=== PATIENT | male | born 1950 | race Two or more races ===

== ENCOUNTER 2021-02-04 01:11 | Emergency (ER) | payer MEDICAID, OTHER ==
[~2021-02-04] VITALS: Ht 167.6 cm; Wt 88.5 kg
[2021-02-04 02:41] LABS: Basophils # (auto) 0.1 10 ^3/uL (0-0.2); Basophils % (auto) 2.3 % (0.0-2.0); Eosinophils # (auto) 0.3 10 ^3/uL (0-0.8); Eosinophils % (auto) 5.1 % (0.0-7.0); Hemoglobin 15.8 g/dL (13.5-17.5); Lymphocytes # (auto) 1.3 10 ^3/uL (0.4-5.4); Lymphocytes % (auto) 22.7 % (10.0-50.0); Mean Corpuscular Hemoglobin 31.8 pg (28.0-32.0); Mean Corpuscular Hgb Conc. 34.3 g/dL (32.0-36.0); Mean Corpuscular Volume 92.9 fL (80.0-100.0); Monocytes # (auto) 0.6 10 ^3/uL (0-1.3); Monocytes % (auto) 10.2 % (0.0-12.0); Neutrophils # (auto) 3.5 10 ^3/uL (1.6-8.6); Neutrophils % (auto) 59.7 % (37.0-80.0); Nucleated Red Blood Cells % 0.1 %; Red Blood Cells 4.96 10^6/uL (4.5-5.90); Red Cell Distribution Width 13.9 % (11.8-14.3); White Blood Cell 5.8 10^3/uL (4.4-10.8)
[2021-02-04 03:02] LABS: Albumin 3.6 g/dL (3.4-5.0); Chloride 106 mmol/L (98-107); Potassium 4.1 mmol/L (3.5-5.1); Sodium 140 mmol/L (136-145)
[2021-02-04 03:07] LABS: Alanine Aminotransferase 40 U/L (16-61); Anion Gap 7 (5-15); Aspartate Aminotransferase 27 U/L (15-37); Blood Urea Nitrogen 8 mg/dL (7-18); Calcium 8.3 mg/dL (8.5-10.1); Carbon Dioxide 27 mmol/L (21-32); GFR African American 109 mL/min; GFR Non-African American 90 mL/min; Glucose 87 mg/dL (74-106)
[2021-02-04 03:12] LABS: Alkaline Phosphatase 67 U/L (45-117); Bilirubin, Total 0.4 mg/dL (0.2-1.0); Total Protein 8.1 g/dL (6.4-8.2)
[2021-02-04 08:00] VITALS: BP 154/72
== END 2021-02-04 08:05 | disposition home or self-care (01) ==
LOC: ER 01:11
DX: J06.9 Acute upper respiratory infection, unspecified (principal); F41.9 Anxiety disorder, unspecified
CPT/HCPCS: 36415; 71045; 80053; 83880; 84484; 85025; 93005

== ENCOUNTER 2022-10-16 11:37 | Inpatient (IN) | payer MEDICAID, OTHER ==
[~2022-10-16] VITALS: Ht 152.4 cm; Wt 71.8 kg
[2022-10-16 12:04] LABS: Basophils # (auto) 0.1 10 ^3/uL (0-0.2); Basophils % (auto) 0.7 % (0.0-2.0); Eosinophils # (auto) 0.1 10 ^3/uL (0-0.8); Eosinophils % (auto) 1.4 % (0.0-7.0); Hematocrit 41.3 % (41.0-53.0); Hemoglobin 13.6 g/dL (13.5-17.5); Lymphocytes # (auto) 1.1 10 ^3/uL (0.4-5.4); Lymphocytes % (auto) 14.3 % (10.0-50.0); Mean Corpuscular Hemoglobin 28.6 pg (28.0-32.0); Mean Corpuscular Volume 86.9 fL (80.0-100.0); Monocytes # (auto) 0.6 10 ^3/uL (0-1.3); Monocytes % (auto) 7.9 % (0.0-12.0); Neutrophils # (auto) 5.7 10 ^3/uL (1.6-8.6); Neutrophils % (auto) 75.7 % (37.0-80.0); Red Blood Cells 4.76 10^6/uL (4.5-5.90); Red Cell Distribution Width 19.2 % (11.8-14.3); White Blood Cell 7.5 10^3/uL (4.4-10.8)
[2022-10-16 12:25] LABS: BUN/Creatinine Ratio 13.6 (10.0-20.0); Calcium 8.7 mg/dL (8.5-10.1); Magnesium 2.3 mg/dL (1.6-2.6); Potassium 4.1 mmol/L (3.5-5.1)
[2022-10-16 12:36] LABS: Bilirubin, Total 0.4 mg/dL (0.2-1.0)
[2022-10-16] MEDS ORDERED: ONDANSETRON HCL 4 MG/2 ML VIAL IV ONE (13:30)
[2022-10-16] MEDS ORDERED: MORPHINE SULFATE INJ 2 MG/ml SYRG IV ONE (13:30)
[2022-10-16] MEDS ORDERED: MORPHINE SULFATE INJ 2 MG/ml SYRG IV PRN (17:45)
[2022-10-16] MEDS ORDERED: AZITHROMYCIN 500MG/ 250ML 250 ML IV ONE (18:15)
[2022-10-16] MEDS ORDERED: hydrALAZINE HCL 20 MG/ML VL IV PRN (18:15)
[2022-10-16 20:43] LABS: INR 1.11 (0.9-1.15); Partial Thromboplastin Time 33.2 SEC (24.5-34.5)
[2022-10-16 23:43] VITALS: BP 108/60
[2022-10-17] VITALS (8 sets, daily range): BP systolic 103–107; BP diastolic 52–56
[2022-10-17] MEDS: SODIUM CHLORIDE 0.9% 1,000 ML IV SCH ×3 (00:18→02:02)
[2022-10-17 06:14] LABS: Basophils # (auto) 0.1 10 ^3/uL (0-0.2); Basophils % (auto) 1.2 % (0.0-2.0); Eosinophils # (auto) 0.4 10 ^3/uL (0-0.8); Eosinophils % (auto) 7.5 % (0.0-7.0); Hematocrit 34.7 % (41.0-53.0); Hemoglobin 11.9 g/dL (13.5-17.5); Lymphocytes # (auto) 1.2 10 ^3/uL (0.4-5.4); Lymphocytes % (auto) 22.1 % (10.0-50.0); Mean Corpuscular Hemoglobin 29.7 pg (28.0-32.0); Mean Corpuscular Hgb Conc. 34.1 g/dL (32.0-36.0); Mean Corpuscular Volume 86.9 fL (80.0-100.0); Monocytes # (auto) 0.6 10 ^3/uL (0-1.3); Monocytes % (auto) 11.1 % (0.0-12.0); Neutrophils # (auto) 3.1 10 ^3/uL (1.6-8.6); Neutrophils % (auto) 58.1 % (37.0-80.0); Nucleated Red Blood Cells % 0.1 %; Red Cell Distribution Width 19.5 % (11.8-14.3); White Blood Cell 5.3 10^3/uL (4.4-10.8)
[2022-10-17 06:30] LABS: Albumin 2.6 g/dL (3.4-5.0); Calcium 8.3 mg/dL (8.5-10.1); Potassium 3.7 mmol/L (3.5-5.1)
[2022-10-17 06:32] LABS: BUN/Creatinine Ratio 15.8 (10.0-20.0); Bilirubin, Total 0.4 mg/dL (0.2-1.0); Total Protein 6.1 g/dL (6.4-8.2)
[2022-10-17] MEDS ORDERED: cefTRIAXone 1GM/50ML D5W 50 ML IV ONE (10:45)
[2022-10-17] MEDS ORDERED: LEVOTHYROXINE SODIUM 50 MCG TAB PO ONE (10:45)
[2022-10-17] MEDS: PANTOPRAZOLE 40 MG/10 ML VIAL INJ IV SCH (11:40)
[2022-10-17] MEDS: HYDROcodone-ACET 5/325MG TAB PO PRN ×2 (11:41→18:18)
[2022-10-17] MEDS: AZITHROMYCIN 500MG/ 250ML 250 ML IV SCH (11:42)
[2022-10-17] MEDS: ALBUTEROL SULF 2.5 MG/0.5ML(0.5%) NEB SOLN NEB SCH (11:48)
[2022-10-17] MEDS: IPRATROPIUM BROM 0.5 MG/2.5ML INH SOL NEB SCH (11:48)
[2022-10-17 18:37] LABS: Urine Bacteria NONE SEEN /hpf (None Seen); Urine Blood Negative /uL (Negative); Urine Mucus FEW (None Seen); Urine Specific Gravity 1.015 (1.001-1.035); Urine WBC 1 /hpf (0 - 3)
[2022-10-18 04:30] VITALS: BP 92/50
[2022-10-18] MEDS: IPRATROPIUM BROM 0.5 MG/2.5ML INH SOL NEB SCH ×3 (06:24→19:40)
[2022-10-18] MEDS: SUCRALFATE 1 GM/10 ML ORAL SUSP GT SCH ×2 (06:24→16:35)
[2022-10-18] MEDS: ALBUTEROL SULF 2.5 MG/0.5ML(0.5%) NEB SOLN NEB SCH ×3 (06:24→19:40)
[2022-10-18] MEDS: LEVOTHYROXINE SODIUM 50 MCG TAB PO SCH (06:25)
[2022-10-18 08:00] VITALS: BP 102/53
[2022-10-18] MEDS: PANTOPRAZOLE 40 MG/10 ML VIAL INJ IV SCH (09:41)
[2022-10-18] MEDS: AZITHROMYCIN 500MG/ 250ML 250 ML IV SCH (09:41)
[2022-10-18] MEDS: cefTRIAXone 1GM/50ML D5W 50 ML IV SCH (09:41)
[2022-10-18] MEDS ORDERED: predniSONE 20 MG TAB PO ONE (10:30)
[2022-10-18 12:00] VITALS: BP 108/54
[2022-10-18 16:00] VITALS: BP 108/51
[2022-10-18 22:00] VITALS: BP 100/54
[2022-10-18] MEDS: HYDROcodone-ACET 5/325MG TAB PO PRN (23:28)
[2022-10-19 05:00] VITALS: BP 91/68
[2022-10-19] MEDS: SUCRALFATE 1 GM/10 ML ORAL SUSP GT SCH ×2 (06:42→15:27)
[2022-10-19] MEDS: LEVOTHYROXINE SODIUM 50 MCG TAB PO SCH (06:42)
[2022-10-19] MEDS: ALBUTEROL SULF 2.5 MG/0.5ML(0.5%) NEB SOLN NEB SCH ×3 (06:53→18:14)
[2022-10-19] MEDS: IPRATROPIUM BROM 0.5 MG/2.5ML INH SOL NEB SCH ×3 (06:53→18:14)
[2022-10-19 09:00] VITALS: BP 114/62
[2022-10-19] MEDS: AZITHROMYCIN 250 MG TAB PO SCH (09:20)
[2022-10-19] MEDS: PANTOPRAZOLE 40 MG TAB PO SCH (09:21)
[2022-10-19] MEDS: predniSONE 20 MG TAB PO SCH (09:21)
[2022-10-19] MEDS: cefTRIAXone 1GM/50ML D5W 50 ML IV SCH (09:22)
[2022-10-19] MEDS: HYDROcodone-ACET 5/325MG TAB PO PRN (09:22)
[2022-10-19 17:00] VITALS: BP 113/47
[2022-10-19 22:00] VITALS: BP 112/60
[2022-10-20 05:00] VITALS: BP 105/61
[2022-10-20] MEDS: LEVOTHYROXINE SODIUM 50 MCG TAB PO SCH (06:33)
[2022-10-20] MEDS: SUCRALFATE 1 GM/10 ML ORAL SUSP GT SCH (06:33)
[2022-10-20] MEDS: ALBUTEROL SULF 2.5 MG/0.5ML(0.5%) NEB SOLN NEB SCH ×2 (06:50→12:25)
[2022-10-20] MEDS: IPRATROPIUM BROM 0.5 MG/2.5ML INH SOL NEB SCH ×2 (06:50→12:25)
[2022-10-20 09:00] VITALS: BP 109/59
[2022-10-20] MEDS: cefTRIAXone 1GM/50ML D5W 50 ML IV SCH (09:06)
[2022-10-20] MEDS: predniSONE 20 MG TAB PO SCH (09:10)
[2022-10-20] MEDS: AZITHROMYCIN 250 MG TAB PO SCH (09:10)
[2022-10-20] MEDS: PANTOPRAZOLE 40 MG TAB PO SCH (09:10)
[2022-10-20 09:33] VITALS: BP 105/61
[2022-10-20] MEDS ORDERED: PRED20TA2 PO (10:45)
[2022-10-20] MEDS ORDERED: AZIT-43 PO ×2 (10:45)
[2022-10-20] MEDS ORDERED: PRED10TA PO (10:45)
[2022-10-20] MEDS ORDERED: PANT40T PO (10:51)
[2022-10-20] MEDS ORDERED: LEVO500T91 PO (10:51)
[2022-10-20] MEDS ORDERED: SUCR1SUS26 GT (10:51)
[2022-10-20] MEDS ORDERED: METR-344 PO (10:51)
[2022-10-20 13:00] VITALS: BP 114/48
[2022-10-20 13:18] VITALS: BP 109/59
== END 2022-10-20 14:15 | disposition home or self-care (01) | DRG 139 ==
LOC: ER 11:37 → EDBD 11:37 → EDUNIT# 17:34 → OVERFLOW 17:34 → CENTRAL 22:10
PROVIDERS: ADMIT Nurse Practitioner Family; ATTEND Internal Medicine
DX: J18.9 Pneumonia, unspecified organism (principal); J96.21 Acute and chronic respiratory failure with hypoxia; K80.00 Calculus of gallbladder with acute cholecystitis without obstruction; I50.42 Chronic combined systolic (congestive) and diastolic (congestive) heart failure; I11.0 Hypertensive heart disease with heart failure; J84.10 Pulmonary fibrosis, unspecified; E78.5 Hyperlipidemia, unspecified; E03.9 Hypothyroidism, unspecified; E66.9 Obesity, unspecified; Z87.891 Personal history of nicotine dependence; Z99.81 Dependence on supplemental oxygen; Z68.30 Body mass index [BMI] 30.0-30.9, adult
CPT/HCPCS: 36415; 71045; 71250; 74176; 76705; 78226; 80053; 81001; 83690; 83735; 83880; 84443; 84484; 85025; 85379; 85610; 85652; 85730; 86038; 86141; 93005; 94640; 96365; 96375; 97163; C9113; G0378; J0696; J2405